=== PATIENT | female | born 1935 | race Caucasian/White ===

== ENCOUNTER 2016-10-09 14:04 | Inpatient (IN) | payer MEDICARE, OTHER ==
[2016-10-09] MEDS ORDERED: SODIUM CHLORIDE 0.9% 1,000 ML ONE (15:06)
[2016-10-09] MEDS ORDERED: ONDANSETRON 4 MG/2ML 2 ML VIAL ONE ×2 (15:06→19:52)
[2016-10-09] MEDS ORDERED: ALBUTEROL/IPRATROPIUM 2.5/0.5 MG 3 ML/EACH DOSE ONE (15:15)
[2016-10-09 16:59] LABS: ALB/GLOB RATIO 1.2 (>1.0); ALBUMIN 3.8 gm/dL (3.5-5.7); CALCIUM 8.8 mg/dL (8.6-10.3)
[2016-10-09 17:03] LABS: ABSOLUTE NEUTROPHIL COUNT 4.2 K/mm3 (1.8-7.7); BASO % 0.2 % (0.2-1.0); HEMATOCRIT 51.2 % (37.0-47.0); IMM NEUT% 0.2 % (0-1); LYMPH # 1.2 (1.0-4.8); LYMPH % 19.2 % (15-45); MEAN CELL VOLUME 90.1 fl (81.0-99.0); MEAN CORPUSCULAR HEMOGLOBIN 29.9 pg (27.0-31.0); MEAN CORPUSCULAR HGB CONC 33.2 g/dl (33.0-37.0); MEAN PLATELET VOLUME 12.2 fl (7.4-10.4); MONO % 15.3 % (4-12); NEUT % 65.1 % (43-75); PLATELET COUNT 186 K/mm3 (130-400); RED CELL DISTRIBUTION WIDTH 13.6 % (11.5-14.5)
[2016-10-09 17:19] LABS: TROPONIN I 0.04 ng/ml (0.0-0.06)
[2016-10-09 17:22] LABS: CKMB ISOENZYME 2.4 ng/ml (0.6-6.3)
--- NOTE | 2016-10-09 17:23 | RAD ---
History: Cough. Comparison: 10/07/2016. Technique: 2 views Findings: The soft tissue and bony structures are grossly appropriate. There appears to be a thoracic scoliotic deformity. The heart size is normal. Coarsened bronchovascular markings are identified with no gross consolidation, effusion or pneumothorax visualized. The hilar and mediastinal structures are intact. Impression: 1. A thoracic scoliotic deformity. 2. No active intrathoracic process.
[2016-10-09 18:34] LABS: URINE BILIRUBIN NEGATIVE (NEGATIVE); URINE BLOOD TRACE (NEGATIVE); URINE GLUCOSE (UA) NEGATIVE (NEGATIVE); URINE LEUKOCYTE ESTERASE NEGATIVE (NEGATIVE); URINE NITRITE NEGATIVE (NEGATIVE); URINE PROTEIN 2+ (NEGATIVE); URINE UROBILINOGEN NORMAL (0-1 mg/dl)
[2016-10-09 18:35] LABS: URINE APPEARANCE CLEAR; URINE COLOR AMBER
[2016-10-09 18:43] LABS: URINE BACTERIA 2+
[2016-10-09] MEDS ORDERED: SODIUM CHLORIDE 0.9% FLUSH 10 ML ONE (20:48)
[2016-10-09] MEDS ORDERED: ONDANSETRON 4 MG ODT TAB PO PRN (21:36)
[2016-10-09] MEDS ORDERED: MECLIZINE HCL 25 MG TABLET PO PRN (21:36)
[2016-10-09 21:41] VITALS: BMI 27.2
[2016-10-09] MEDS ORDERED: METHYL SALICYLATE TP PRN (21:42)
[2016-10-09] MEDS ORDERED: MENTHOL TP PRN (21:42)
[2016-10-09] MEDS ORDERED: MAGNESIUM HYDROXIDE 30 ML UDCUP PO PRN (21:43)
[2016-10-09] MEDS ORDERED: MENTHOL/CETYLPYRD 1 EACH LOZENGE PO PRN (21:43)
[2016-10-09] MEDS ORDERED: SODIUM CHLORIDE 0.9% 100 ML IV PRN (21:43)
[2016-10-09] MEDS ORDERED: BLISTEX LIPSTICK 1 EACH TP PRN (21:43)
[2016-10-09] MEDS ORDERED: SODIUM CHLORIDE 0.9% 1,000 ML IV SCH (21:45)
[2016-10-09] MEDS ORDERED: ALBUTEROL NEB 2.5 MG/3 ML VIAL.NEB NEB PRN (22:02)
[2016-10-09] MEDS ORDERED: GUAIFENESIN 600 MG TABLET.DR PO PRN (22:02)
[2016-10-09] MEDS ORDERED: PUMP TUBING ONE (22:32)
[2016-10-09] MEDS: LIDOCAINE 5% PATCH TP SCH (22:44)
[2016-10-09] MEDS: METOPROLOL TARTRATE 50 MG TABLET PO SCH (22:45)
[2016-10-09] MEDS: PANTOPRAZOLE 40 MG TABLET DR PO SCH (22:45)
[2016-10-09] MEDS: D5 1/2NS with 20 mEq KCL 1,000 ML IV SCH (22:45)
[2016-10-10 06:53] LABS: HEMATOCRIT 42.6 % (37.0-47.0); HEMOGLOBIN 14.2 gm/l (12.0-16.0); MEAN CELL VOLUME 88.6 fl (81.0-99.0); MEAN CORPUSCULAR HEMOGLOBIN 29.5 pg (27.0-31.0); MEAN CORPUSCULAR HGB CONC 33.3 g/dl (33.0-37.0); RED CELL DISTRIBUTION WIDTH 13.2 % (11.5-14.5)
[2016-10-10] MEDS: D5 1/2NS with 20 mEq KCL 1,000 ML IV SCH ×2 (08:01→21:20)
[2016-10-10] MEDS: ASPIRIN (UNCOATED) 325 MG TABLET PO SCH (08:01)
[2016-10-10] MEDS: LEVOTHYROXINE SODIUM 88 MCG TABLET PO SCH (08:01)
[2016-10-10] MEDS: DOCUSATE SODIUM 100 MG CAPSULE PO SCH ×2 (08:01→21:27)
[2016-10-10] MEDS: PANTOPRAZOLE 40 MG TABLET DR PO SCH (08:02)
[2016-10-10] MEDS: METOPROLOL TARTRATE 50 MG TABLET PO SCH ×2 (08:02→21:27)
[2016-10-10] MEDS: ALBUTEROL/IPRATROPIUM 2.5/0.5 MG 3 ML/EACH DOSE NEB SCH ×5 (10:59→20:13)
--- NOTE | 2016-10-10 11:00 | HP ---
JADA LOPEZ [id number] DATE OF : 1935 DATE OF ADMISSION: 10/09/2016 IDENTIFICATION: Ms. Lopez is an 81-year-old followed by Dr. Bob Vernon. CHIEF COMPLAINT: Cough. HISTORY OF PRESENT ILLNESS: Ms. Lopez presented to [facility] Emergency Room for the second time in 3 days this evening. Her primary complaint seems to be cough with clear sputum and dyspnea, but she has also had abdominal pain and a multitude of other complaints. Her work up did not reveal any significant acute medical problems, but she was felt too weak to go home, so she was referred to the Hospitalist service for observation. REVIEW OF SYSTEMS: HEENT: She reports headache, and dizziness, sore throat from coughing. Respiratory: Cough with clear sputum, and dyspnea. Abdominal pain and sore throat from coughing. Cardiac: No chest pain, or palpitations. Gastrointestinal: She has had some vomiting at home, chronic reflux symptoms, intermittent diarrhea and constipation without hematochezia, or melena. Recently thought she had a bowel obstruction, but did not. As above, she was seen in the emergency department 2 days for generalized abdominal pain. Genitourinary: No dysuria, or urgency. Musculoskeletal: She does complain of pain all over. Constitutional: She thinks she has gained weight from holiday eating. No fever, or chills. PAST MEDICAL HISTORY: 1. Fibromyalgia syndrome. 2. Inflammatory arthritis. 3. Hypothyroidism on replacement. 4. Hypertension. 5. Chronic nausea. 6. History of pulmonary embolism post-surgery. 7. Diverticulosis with recurrent diverticulitis. 8. Ischemic bowel status post three different excisional procedures. 9. Gastroesophageal reflux disease. 10. Cerebrovascular disease with at least three small cerebrovascular accidents evident on head CT scan. She is not aware of any residual functional loss. 11. Chronic vertigo. PAST SURGICAL HISTORY: 1. Bowel resection times three. 2. Cholecystectomy. 3. Hysterectomy. 4. Tonsillectomy. ALLERGIES: REPORTED TO MORPHINE, PENICILLIN, CIPROFLOXACIN, CODEINE, CAFFEINE, METRONIDAZOLE, AND MSG. MEDICATIONS: 1. Lidocaine patch 5% one daily which she uses wherever she has the most pain on that day. 2. Ondansetron ODT 4 mg by mouth every 4 hours as needed. 3. Hydrocodone with acetaminophen 7.5/325 one tablet every 6 hours as needed. 4. Aspirin 325 mg by mouth daily. 5. Meclizine 25 mg by mouth every 4 to 6 hours as needed. 6. Metoprolol tartarate 50 mg by mouth twice a day. 7. Levothyroxine sodium 88 mcg by mouth daily. 8. Estrogen cream as needed. HABITS: No current, or past tobacco abuse. No alcohol use. SOCIAL HISTORY: She was many years ago. She lives alone in [place]. She has only friends listed for contacts, no family members. Her adopted son in 1997. FAMILY HISTORY: Her sister has asthma, and fibrocystic breasts. It sounds like her mother had fibrocystic breasts as well. PHYSICAL EXAMINATION: GENERAL: This is a fatigued elderly woman with mild tremor. VITAL SIGNS: Temperature is 98.9 degrees Fahrenheit. Pulse is 94. Blood pressure is 164/94. Respiratory rate is 22. Oxygen saturation is 92% on room air. HEENT: Pupils are equal, round and reactive. Extraocular muscles intact. Oropharynx is very dry. NECK: No adenopathy. CHEST: Slight expiratory wheezes, otherwise clear. HEART: Regular. ABDOMEN: Soft, nontender, normal bowel tones. Multiple well healed surgical scars. No organomegaly. EXTREMITIES: Good peripheral pulses. No clubbing, cyanosis or edema. NEUROLOGIC: Slight tremor, otherwise nonfocal. She is alert and oriented. LABORATORY DATA: White blood cell count is 6.5, hemoglobin and hematocrit elevated at 17 and 51.2, and platelets 186. Chemistry: Sodium is 137, potassium 3.9, chloride 104, C02 of 22, BUN 32, creatinine 0.7, and glucose 119. Liver enzymes are normal. Cardiac enzymes are negative. Urinalysis: Specific gravity of 1.020, 2+ protein, 1+ ketones, trace blood, negative nitrate, negative leukocyte esterase, microscopic only showed 1 to 3 white blood cells and epithelial cells, but had 2+ bacteria, culture has been set up. Influenza A and B negative. DIAGNOSTIC IMAGING: Chest x-ray senescent changes and scoliosis, no acute process. ASSESSMENT: Ms. Lopez is an 81-year-old with cough and weakness likely upper respiratory infection from viral source. She has multiple underlying conditions and polycythemia which may simply be concentration from dehydration as she has not been eating, or drinking much. PLAN: 1. Refer to observation. 2. IV fluid hydration and repeat CBC in the morning. 3. Physical and occupational therapy evaluation and treatment. 4. Care management and social work involvement for increased help at home, or higher level of care. 5. Continue outpatient medications. 6. Code status is DO NOT RESUSCITATE per discussion with the patient. 7. Venous thromboembolism prophylaxis is not indicated as anticipated hospitalization is less than 48 hours. ANTELMO/akua
--- NOTE | 2016-10-10 14:06 | PDOC43 ---
- Subjective Chief Complaint: Placement/help at home concerns. Patient reports feeling poorly, no major changes. Sats sl low at 88% on RA, did get up to use restroom some. No new c/o, just reports feeling miserable. Influenza testing negative. REports cough, wheeze. - Objective Vital Signs Temperature 99.0 F 10/10/16 08:04 Pulse Rate 78 10/10/16 08:04 Respiratory Rate 16 10/10/16 11:00 Blood Pressure 183/94 10/10/16 08:04 O2 Saturation by Pulse Oximetry 88 10/10/16 08:04 Oxygen Delivery Method Room Air Oxygen Flow Rate 0 Vital Signs Last 12 Hours Temp Pulse Resp BP Pulse Ox 10/10/16 11:00 16 10/10/16 08:04 99.0 F 78 16 183/94 88 10/10/16 07:39 98.3 F 76 18 162/94 10/10/16 02:00 18 Intake and Output 10/08/16 10/09/16 10/10/16 23:59 23:59 23:59 Intake Total 500 Output Total 1 Balance 499 General: Alert, Moderate Distress, Other (color good.) Lungs: Other (fair to low respiratory effort. Sl wheeze suggested bilat.) Cardiovascular: Regular Rate and Rhythm Abdomen: Soft, Normal Bowel Sounds Extremities: No Edema Skin: Normal Color Neurological: Normal Speech Psych/Mental Status: Other (sl unusual affect.) Laboratory 10/10/16 05:20 Current Medications: Current meds reviewed in EMR. Active Medications Acetaminophen/Hydrocodone Bitart ([place] 7.5/325) 1 tab PO Q6H PRN PRN Reason: Pain Albuterol Sulfate (Ventolin Inhalation Solution (Dose)) 2.5 mg NEB Q2H PRN PRN Reason: Wheezing Albuterol/Ipratropium (Duoneb) 3 ml NEB QID [facility] Last Admin: 10/10/16 13:23 Dose: Not Given Aspirin (Aspirin (Uncoated)) 325 mg PO DAILY [facility] Last Admin: 10/10/16 08:01 Dose: 325 mg Benzocaine/Menthol (Cepacol) 1 each PO PRN PRN PRN Reason: Sore Throat Docusate Sodium (Colace) 100 mg PO BID [facility] Last Admin: 10/10/16 08:01 Dose: 100 mg Guaifenesin (Mucinex) 600 mg PO BID PRN PRN Reason: Cough Potassium Chloride/Dextrose/Sod Cl (D51/2ns With 20 Meq Kcl) 1,000 mls @ 100 mls/hr IV .Q10H [facility] Last Admin: 10/10/16 08:01 Dose: 100 mls/hr Sodium Chloride (Sodium Chloride 0.9%) 100 mls @ 25 mls/hr IV PRN PRN PRN Reason: Flush Levothyroxine Sodium (Levothroid) 88 mcg PO QAMAC [facility] Last Admin: 10/10/16 08:01 Dose: 88 mcg Lidocaine (Lidoderm) 1 each TP Q24H [facility] Last Admin: 10/09/16 22:44 Dose: 1 each Magnesium Hydroxide (Milk Of Magnesia) 30 ml PO DAILY PRN PRN Reason: Constipation Meclizine HCl (Antivert) 25 mg PO Q4-6H PRN PRN Reason: Nausea Methyl Salicylate (Daniel-Reilly) 1 applic TP Q6H PRN PRN Reason: Muscle spasm Last Admin: 10/09/16 22:45 Dose: 1 applic Metoprolol Tartrate (Lopressor) 50 mg PO BID [facility] Last Admin: 10/10/16 08:02 Dose: 50 mg Ondansetron HCl (Zofran Odt) 4 mg PO Q4H PRN PRN Reason: Nausea Pantoprazole Sodium (Protonix) 40 mg PO DAILY [facility] Last Admin: 10/10/16 08:02 Dose: 40 mg Petrolatum/Paraffin/Mineral Oil (Blistex) 1 each TP PRN PRN PRN Reason: Dry and/or chapped lips Sodium Chloride (Normal Saline 10ml Flush) 10 - 50 ml IV PRN PRN PRN Reason: IV Flush Sodium Chloride (Normal Saline 10ml Flush) 10 ml IV Q8HR [facility] Last Admin: 10/10/16 08:02 Dose: 10 ml - Problems: Assessment/Plan (1) Polycythemia Status: Resolved Assessment/Plan: Improved with hydration. Suspect some degree of dehydration was major factor. (2) Fibromyalgia syndrome Status: Chronic Assessment/Plan: continue current meds. (3) Cough Status: Acute Assessment/Plan: Suspect viral illness, CXR unrem. Influenza testing negative. VTE Prophylaxis: low risk Disposition: hope to return home 10/11/16 with increased help.
[2016-10-10] MEDS: HYDROcodone/ACETAM 7.5/325MG TABLET PO PRN (17:05)
[2016-10-10] MEDS: LIDOCAINE 5% PATCH TP SCH (21:27)
[2016-10-11] MEDS: HYDROcodone/ACETAM 7.5/325MG TABLET PO PRN ×2 (01:05→07:22)
[2016-10-11 07:11] VITALS: BP 133/82
[2016-10-11] MEDS: D5 1/2NS with 20 mEq KCL 1,000 ML IV SCH (07:21)
[2016-10-11] MEDS: LEVOTHYROXINE SODIUM 88 MCG TABLET PO SCH (07:22)
[2016-10-11] MEDS: ALBUTEROL/IPRATROPIUM 2.5/0.5 MG 3 ML/EACH DOSE NEB SCH (08:26)
[2016-10-11] MEDS: METOPROLOL TARTRATE 50 MG TABLET PO SCH (09:44)
[2016-10-11] MEDS: DOCUSATE SODIUM 100 MG CAPSULE PO SCH (09:44)
[2016-10-11] MEDS: PANTOPRAZOLE 40 MG TABLET DR PO SCH (09:44)
[2016-10-11] MEDS: ASPIRIN (UNCOATED) 325 MG TABLET PO SCH (09:44)
[2016-10-11] MEDS ORDERED: NITROFURANTOIN/NITROFURAN MAC 100 MG CAPSULE PO ONE (11:13)
--- NOTE | 2016-10-11 11:48 | DS ---
JADA LOPEZ DATE OF ADMISSION: October 09, 2016 DATE OF DISCHARGE: October 11, 2016 ADMIT DIAGNOSES: 1. Viral upper respiratory infection. 2. Weakness secondary to above. 3. Urinary tract infection with Enterococcus not identified at admission though her urine culture did grow out 20 to 30,000 CFU of Enterococcus by day of discharge felt to most likely asymptomatic. 4. Multiple other chronic medical problems at baseline including fibromyalgia, hypothyroidism, hypertension, etc. HISTORY OF PRESENT ILLNESS: Please see Dr. Severo Rdz's note for details. Briefly, Ms. Lopez is an 81-year-old female who has had upper respiratory symptoms for the last week or two. She was seen in the emergency room twice in the days preceding this admission. Her workup in the emergency room was unremarkable, however, she was so weak, that it was felt she was not safe to go home. She was therefore admitted to the hospitalist service. HOSPITAL COURSE: She was admitted. Workup again remained negative with the exception of a borderline urinary tract infection with Enterococcus noted above. She did not receive antibiotics while in the hospital until receiving Macrobid on the day of discharge for her urinary tract infection. Her pulmonary status remained unchanged with symptoms consistent with a viral upper respiratory infection. By day of discharge, she had no oxygen requirement. She was working well with physical therapy and occupational therapy. She still did have a cough, but it was felt that she was safe to go home with caregivers. Patient declined [facility] facility. Her urine culture did grow out 20 to 30,000 CFU of Enterococcus. It is felt that this is most likely not symptomatic, but we will go ahead and treat her with a five-day course of Macrobid. DISCHARGE MEDICATIONS: Macrobid 500 mg orally twice daily times five days. All other medications as prior to admit as follows: 1. [place] 7.5/325 one orally every six hours as needed. 2. Meclizine 25 mg orally every four to six hours as needed. 3. Ondansetron 4 mg orally every four hours as needed. 4. Aspirin 325 mg orally daily. 5. Premarin cream as prior to admit. 6. Levothyroxine 88 mcg orally daily. 7. Lidoderm patch as prior to admit. 8. Metoprolol 50 mg orally twice daily. DISCHARGE FOLLOW UP: Will be with her regular physician, Dr. Bob Vernon, in the next seven days for a recheck, sooner as needed. Cc: Bob Vernon M.D.
== END 2016-10-11 13:05 | disposition home or self-care (01) | DRG 153 ==
LOC: ED 14:04 → MS 19:13 → INTOOBSV 19:13 → OBSVTOIN 19:13
PROVIDERS: ADMIT Family Medicine; ATTEND Family Medicine
DX: J06.9 Acute upper respiratory infection, unspecified (principal); N39.0 Urinary tract infection, site not specified; M19.90 Unspecified osteoarthritis, unspecified site; M79.7 Fibromyalgia; E03.9 Hypothyroidism, unspecified; I10 Essential (primary) hypertension; Z86.711 Personal history of pulmonary embolism; K21.9 Gastro-esophageal reflux disease without esophagitis; Z66 Do not resuscitate; R53.1 Weakness; B95.2 Enterococcus as the cause of diseases classified elsewhere; Z86.73 Personal history of transient ischemic attack (TIA), and cerebral infarction without residual deficits; Z79.82 Long term (current) use of aspirin; Z79.899 Other long term (current) drug therapy; Z88.1 Allergy status to other antibiotic agents; Z88.5 Allergy status to narcotic agent; Z88.0 Allergy status to penicillin; Z88.8 Allergy status to other drugs, medicaments and biological substances; Z91.018 Allergy to other foods